=== PATIENT | female | born 1975 | race Caucasian/White ===

== ENCOUNTER 2020-03-30 14:47 | Emergency (ER) | payer OTHER ==
[~2020-03-30] VITALS: Ht 165.1 cm; Wt 104.3 kg
[~2020-03-30 14:47] MED LIST: [UNRECOGNIZED DRUG - OTHER]
[2020-03-30 14:52] VITALS: BP 118/68
[2020-03-30 15:14] VITALS: BP 118/68
== END 2020-03-30 15:14 | disposition home or self-care (01) ==
LOC: MED 14:47
DX: L02.212 Cutaneous abscess of back [any part, except buttock and flank] (principal); Z88.0 Allergy status to penicillin; Z79.899 Other long term (current) drug therapy; Z96.651 Presence of right artificial knee joint
CPT/HCPCS: 99282

== ENCOUNTER 2020-06-09 18:05 | Emergency (ER) | payer OTHER ==
[~2020-06-09] VITALS: Ht 162.6 cm; Wt 61.2 kg
[2020-06-09] MEDS ORDERED: LURA20TA PO (18:10)
[2020-06-09] MEDS ORDERED: BUS5 PO (18:10)
[2020-06-09 18:11] VITALS: BP 142/90
[2020-06-09 20:02] LABS: BASOPHILS % (AUTO) 0.3 % (0.0-2.0); EOSINOPHILS # (AUTO) 0.1 K/uL (0-0.4); EOSINOPHILS % (AUTO) 0.8 % (0.0-4.0); HEMATOCRIT 36.5 % (36-48); HEMOGLOBIN 12.2 g/dL (12.0-16.0); LYMPHOCYTES # (AUTO) 1.7 K/uL (2.5-16.5); LYMPHOCYTES % (AUTO) 20.1 % (20.5-51.1); MEAN CORPUSCULAR HEMOGLOBIN 30 pg (27-31); MEAN CORPUSCULAR HGB CONC 33 g/dL (33-37); MEAN CORPUSCULAR VOLUME 90.5 fL (80-94); MONOCYTES # (AUTO) 0.8 K/uL (0.8-1.0); MONOCYTES % (AUTO) 9.4 % (1.7-9.3); NEUTROPHILS # (AUTO) 5.9 K/uL (1.8-7.7); NEUTROPHILS % (AUTO) 69.4 % (42.2-75.2); PLATELET COUNT (AUTO) 355 K/uL (140-450); RED BLOOD CELL COUNT(AUTO) 4.03 MIL/uL (4.20-5.40); RED CELL DISTRIBUTION WIDTH 13.1 % (11.6-13.7); WHITE BLOOD COUNT (AUTO) 8.5 K/uL (4.8-10.8)
[2020-06-09 20:18] LABS: ALBUMIN 3.3 g/dL (3.4-5.0); ANION GAP 10.9 (8-16); ASPARTATE AMINOTRANSFERASE 19 U/L (15-37); CHLORIDE 105 mmol/L (98-107); CREATININE 0.9 mg/dL (0.6-1.3); GFR ARICAN-AMERICAN 88 mL/min (>90); GLUCOSE 109 mg/dL (74-106); POTASSIUM 3.9 mmol/L (3.5-5.1); SODIUM SERUM 141 mmol/L (136-145); TOTAL BILIRUBIN 0.3 mg/dL (0.0-1.0); UREA NITROGEN, BLOOD 15 mg/dL (7-18)
[2020-06-09 20:21] LABS: SALICYLATE < 2.8 mg/dL (2.8-20.0)
[2020-06-09 20:22] LABS: ACETAMINOPHEN < 0.5 ug/ml (10-30)
[2020-06-09 23:07] LABS: APPEARANCE,URINE CLEAR (CLEAR); BILIRUBIN,URINE NEGATIVE (NEGATIVE); BLOOD, URINE 3+ (NEGATIVE); COLOR,URINE YELLOW (YELLOW); LEUKOCYTE ESTERASE ,URINE NEGATIVE (NEGATIVE); NITRITE, URINE NEGATIVE (NEGATIVE); UGLUCOSE NEGATIVE (NEGATIVE)
[2020-06-09 23:16] LABS: BARBITURATE, URINE NEGATIVE ng/ml (NEG <=200); BENZODIAZEPINE, URINE NEGATIVE ng/mL (NEG <=200); CANNABINOID, URINE NEGATIVE ng/mL (NEG <=50); COCAINE, URINE NEGATIVE ng/mL (NEG <=300); OPIATE, URINE NEGATIVE ng/mL (NEG <=2000); PHENCYCLIDINE SCREEN,URINE NEGATIVE ng/mL (NEG <=25)
[2020-06-12 14:29] VITALS: BP 128/57
== END 2020-06-12 14:29 | disposition home or self-care (01) ==
LOC: MED 18:05
DX: R45.851 Suicidal ideations (principal); F29 Unspecified psychosis not due to a substance or known physiological condition; J45.909 Unspecified asthma, uncomplicated; E11.9 Type 2 diabetes mellitus without complications; Z88.0 Allergy status to penicillin; Z79.899 Other long term (current) drug therapy; Z20.828 Contact with and (suspected) exposure to other viral communicable diseases
CPT/HCPCS: 36415; 80053; 80305; 81003; 81025; 84484; 85025; 87426; 99285; G0480; G0482; U0003

== ENCOUNTER 2020-06-13 19:11 | Emergency (ER) | payer OTHER ==
[~2020-06-13] VITALS: Ht 162.6 cm; Wt 97.1 kg
[~2020-06-13 19:11] MED LIST changes: +BUS5 PO; +LURA20TA PO
[2020-06-13 19:20] VITALS: BP 106/75
[2020-06-13] MEDS ORDERED: ACETAMINOPHEN 325 MG TAB PO ONE (19:45)
[2020-06-13 20:36] VITALS: BP 106/75
== END 2020-06-13 20:20 | disposition left against medical advice (07) ==
LOC: MED 19:11
DX: R10.9 Unspecified abdominal pain (principal); J45.909 Unspecified asthma, uncomplicated; E11.9 Type 2 diabetes mellitus without complications; Z88.0 Allergy status to penicillin; Z79.899 Other long term (current) drug therapy
CPT/HCPCS: 99282

== ENCOUNTER 2020-06-20 17:28 | Emergency (ER) | payer OTHER ==
[~2020-06-20] VITALS: Ht 162.6 cm; Wt 86.2 kg
[2020-06-20 17:31] VITALS: BP 133/54
[2020-06-20 18:51] VITALS: BP 129/58
== END 2020-06-20 18:52 | disposition home or self-care (01) ==
LOC: MED 17:28
DX: R10.2 Pelvic and perineal pain (principal); J45.909 Unspecified asthma, uncomplicated; E11.9 Type 2 diabetes mellitus without complications; Z88.0 Allergy status to penicillin; Z79.899 Other long term (current) drug therapy
CPT/HCPCS: 81002; 81025; 99282

== ENCOUNTER 2020-10-09 08:27 | Emergency (ER) | payer OTHER ==
[~2020-10-09] VITALS: Ht 162.6 cm; Wt 91.6 kg
--- NOTE | 2020-10-09 08:35 | NUR ---
PT TAKEN TO ER BED 8 FOR BEDSIDE TRIAGE.
[2020-10-09 08:38] VITALS: BP 111/67
--- NOTE | 2020-10-09 08:42 | NUR ---
45 Y/O FEMALE C/O SUBJECTIVE FEVER AT HOME X3DAYS WITH BILATERAL EAR PAIN 7/10 DESCRIBES ACHING. PT STATES SHE HAD 2ND DOSE PFIZER AND TOOK SOME DAYQUIL WITH SOME RELIEF. DENIES SOB, DENIES N/V. DENIES PMH ALLERGIES: PCN
--- NOTE | 2020-10-09 08:44 | NUR ---
Dr. Jaime at pt bedside for further evaluation.
[2020-10-09] MEDS ORDERED: KETOROLAC 30 MG/ML VIAL IM ONE (08:50)
[2020-10-09] MEDS ORDERED: ACETAMINOPHEN EXTRA STRENGTH 500 MG TAB PO ONE (08:50)
--- NOTE | 2020-10-09 09:20 | NUR ---
Patient discharged with v/s stable. Written and verbal after care instructions given and explained. Patient verbalized understanding. Ambulatory with steady gait. All questions addressed prior to discharge. Advised to follow up with PMD.
[2020-10-09 09:21] VITALS: BP 111/67
== END 2020-10-09 09:20 | disposition home or self-care (01) ==
LOC: MED 08:27
DX: T88.1XXA Other complications following immunization, not elsewhere classified, initial encounter (principal); M79.10 Myalgia, unspecified site; F17.200 Nicotine dependence, unspecified, uncomplicated; J45.909 Unspecified asthma, uncomplicated; E11.9 Type 2 diabetes mellitus without complications; Z71.6 Tobacco abuse counseling; Z79.899 Other long term (current) drug therapy; Z88.0 Allergy status to penicillin
CPT/HCPCS: 96372; 99283; J1885

== ENCOUNTER 2021-02-15 13:09 | Emergency (ER) | payer OTHER ==
[~2021-02-15] VITALS: Ht 162.6 cm; Wt 86.2 kg
[2021-02-15 13:15] VITALS: BP 110/66
--- NOTE | 2021-02-15 13:19 | NUR ---
45 Y/O FEMALE C/O MYALGIA, SORETHROAT, N/V, CHANGES IN APPETITE, HEADACHE 8 X1DAY. PT DENIES FEVER/CHILLS. PMH: ASTHMA ALLERGIES: PCN
--- NOTE | 2021-02-15 13:19 | NUR ---
PT TO WAIT IN TENT.
[2021-02-15] MEDS ORDERED: IBUP-2213 PO (14:01)
[2021-02-15] MEDS ORDERED: PHEN177S23 PO (14:01)
[2021-02-15] MEDS ORDERED: ONDA-24 SL (14:02)
[2021-02-15 14:53] VITALS: BP 110/66
--- NOTE | 2021-02-15 14:53 | NUR ---
Patient discharged with v/s stable. Written and verbal after care instructions given and explained. Patient alert, oriented and verbalized understanding of instructions. Ambulatory with steady gait. All questions addressed prior to discharge. ID band removed. Patient advised to follow up with PMD. Rx of IBURPROFEN, ONDANSETRON, PHENOL given. Patient educated on indication of medication including possible reaction and side effects. Opportunity to ask questions provided and answered.
== END 2021-02-15 14:53 | disposition home or self-care (01) ==
LOC: MED 13:09
DX: J06.9 Acute upper respiratory infection, unspecified (principal); J45.909 Unspecified asthma, uncomplicated; E11.9 Type 2 diabetes mellitus without complications; Z88.0 Allergy status to penicillin
CPT/HCPCS: 99283

== ENCOUNTER 2021-06-03 10:48 | Emergency (ER) | payer OTHER ==
[~2021-06-03] VITALS: Ht 162.6 cm; Wt 96.2 kg
[~2021-06-03 10:48] MED LIST changes: +IBUP-2213 PO; +ONDA-188 SL; +PHEN177S23 PO
[2021-06-03 11:13] VITALS: BP 137/77
[2021-06-03] MEDS ORDERED: NAPR-54 PO (11:44)
[2021-06-03] MEDS ORDERED: CODE5SYR5 PO (11:44)
[2021-06-03] MEDS ORDERED: PRED20TA5 PO (11:44)
[2021-06-03 12:01] VITALS: BP 123/71
--- NOTE | 2021-06-03 12:01 | NUR ---
Patient discharged with v/s stable. Written and verbal after care instructions given FOR VIRAL ILLNESS and explained. Patient alert, oriented and verbalized understanding of instructions. Ambulatory with steady gait. All questions addressed prior to discharge. ID band removed. Patient advised to follow up with PMD. Rx of PROMETHAZINE, NAPROXEN, AND PREDNISONE given. Patient educated on indication of medication including possible reaction and side effects. Opportunity to ask questions provided and answered.
== END 2021-06-03 12:01 | disposition home or self-care (01) ==
LOC: MED 10:48
DX: B34.9 Viral infection, unspecified (principal); Z20.822 Contact with and (suspected) exposure to COVID-19; J45.909 Unspecified asthma, uncomplicated; E11.9 Type 2 diabetes mellitus without complications; Z79.899 Other long term (current) drug therapy; Z88.0 Allergy status to penicillin
CPT/HCPCS: 99283; U0003

== ENCOUNTER 2021-07-24 19:03 | Emergency (ER) | payer OTHER ==
[~2021-07-24] VITALS: Ht 152.4 cm; Wt 97.7 kg
[~2021-07-24 19:03] MED LIST changes: +CODE5SYR5 PO; +NAPR-54 PO; +PRED20TA5 PO
[2021-07-24 19:10] VITALS: BP 130/78
--- NOTE | 2021-07-24 19:21 | NUR ---
PA at bedside for examination
[2021-07-24] MEDS ORDERED: IBUPROFEN 600 MG TAB PO ONE (19:35)
[2021-07-24] MEDS ORDERED: IBUP-2213 PO (20:04)
[2021-07-24] MEDS ORDERED: LORA10TA60 PO (20:04)
[2021-07-24 20:11] VITALS: BP 130/78
--- NOTE | 2021-07-24 20:11 | NUR ---
Patient discharged with v/s stable. Written and verbal after care instructions given and explained. Patient alert, oriented and verbalized understanding of instructions. Ambulatory with steady gait. All questions addressed prior to discharge. ID band removed. Patient advised to follow up with PMD. Rx of IBUPROFEN, LORATADINE given. Patient educated on indication of medication including possible reaction and side effects. Opportunity to ask questions provided and answered.
== END 2021-07-24 20:11 | disposition home or self-care (01) ==
LOC: MED 19:03
DX: H92.02 Otalgia, left ear (principal); R03.0 Elevated blood-pressure reading, without diagnosis of hypertension; J45.909 Unspecified asthma, uncomplicated; E11.9 Type 2 diabetes mellitus without complications; Z79.899 Other long term (current) drug therapy; Z88.0 Allergy status to penicillin
CPT/HCPCS: 99282

== ENCOUNTER 2021-11-24 08:20 | Emergency (ER) | payer OTHER ==
[~2021-11-24] VITALS: Ht 165.1 cm; Wt 99.8 kg
[~2021-11-24 08:20] MED LIST changes: +LORA10TA60 PO
[2021-11-24 08:24] VITALS: BP 121/70
[2021-11-24 09:11] LABS: BASOPHILS % (AUTO) 0.4 % (0.0-2.0); EOSINOPHILS % (AUTO) 0.6 % (0.0-4.0); HEMATOCRIT 36.3 % (36-48); HEMOGLOBIN 12.2 g/dL (12.0-16.0); LYMPHOCYTES # (AUTO) 1.6 K/uL (2.5-16.5); LYMPHOCYTES % (AUTO) 22.1 % (20.5-51.1); MEAN CORPUSCULAR HEMOGLOBIN 30 pg (27-31); MEAN CORPUSCULAR HGB CONC 34 g/dL (33-37); MEAN CORPUSCULAR VOLUME 89.4 fL (80-94); MONOCYTES # (AUTO) 0.7 K/uL (0.8-1.0); NEUTROPHILS # (AUTO) 4.7 K/uL (1.8-7.7); NEUTROPHILS % (AUTO) 66.9 % (42.2-75.2); PLATELET COUNT (AUTO) 331 K/uL (140-450); RED BLOOD CELL COUNT(AUTO) 4.06 MIL/uL (4.20-5.40); RED CELL DISTRIBUTION WIDTH 13.1 % (11.6-13.7)
[2021-11-24 09:24] LABS: ACETAMINOPHEN < 0.5 ug/ml (10-30); ALBUMIN 3.3 g/dL (3.4-5.0); ANION GAP 9.6 (8-16); ASPARTATE AMINOTRANSFERASE 25 U/L (15-37); CARBON DIOXIDE 27.4 mmol/L (21-32); CHLORIDE 108 mmol/L (98-107); CREATININE 0.6 mg/dL (0.6-1.3); GFR ARICAN-AMERICAN 140 mL/min (>90); GLUCOSE 98 mg/dL (74-106); SALICYLATE < 2.8 mg/dL (2.8-20.0); SODIUM SERUM 141 mmol/L (136-145); TOTAL BILIRUBIN 0.4 mg/dL (0.0-1.0); UREA NITROGEN, BLOOD 11 mg/dL (7-18)
[2021-11-24 10:29] LABS: APPEARANCE,URINE CLEAR (CLEAR); BILIRUBIN,URINE NEGATIVE (NEGATIVE); BLOOD, URINE TRACE-I (NEGATIVE); COLOR,URINE YELLOW (YELLOW); LEUKOCYTE ESTERASE ,URINE TRACE (NEGATIVE); NITRITE, URINE NEGATIVE (NEGATIVE); PH,URINE 6.5 (5.0-9.0); UGLUCOSE NEGATIVE (NEGATIVE)
[2021-11-24 10:40] LABS: BARBITURATE, URINE NEGATIVE ng/ml (NEG <=200); BENZODIAZEPINE, URINE NEGATIVE ng/mL (NEG <=200); CANNABINOID, URINE NEGATIVE ng/mL (NEG <=50); COCAINE, URINE NEGATIVE ng/mL (NEG <=300); OPIATE, URINE NEGATIVE ng/mL (NEG <=2000); PHENCYCLIDINE SCREEN,URINE NEGATIVE ng/mL (NEG <=25)
[2021-11-24 11:03] LABS: RBC,URINE 0-5 /HPF (0-5); WBC,URINE 0-5 /HPF (0-5)
[2021-11-24] MEDS ORDERED: BUS5 PO (19:31)
[2021-11-24] MEDS ORDERED: LURA20TA PO (19:31)
[2021-11-24] MEDS ORDERED: RISP0.2515 PO (19:31)
[2021-11-24] MEDS ORDERED: DOCU-299 PO (19:31)
[2021-11-24] MEDS ORDERED: DIVA500T1 PO (21:07)
[2021-11-25] MEDS ORDERED: KCL 20 MEQ/WATER INJ PREMIX 200 ML IV PRN (08:25)
[2021-11-25] MEDS ORDERED: ACETAMINOPHEN 325 MG TAB PO PRN (08:25)
[2021-11-25] MEDS ORDERED: HYDROcodone/APAP 5/325 MG 1 TAB TAB PO PRN (08:25)
[2021-11-25] MEDS ORDERED: ONDANSETRON 4 MG/2 ML VIAL IVP PRN (08:25)
[2021-11-25] MEDS ORDERED: MAGNESIUM OXIDE 400 MG TAB PO PRN (08:25)
[2021-11-25] MEDS ORDERED: MAG SULF 2000 MG/WATER PREMIX 50 ML IV PRN (08:25)
[2021-11-25] MEDS ORDERED: POTASSIUM CHLORIDE 10 MEQ TABER PO PRN (08:25)
[2021-11-25] MEDS ORDERED: DOCUSATE SODIUM 100 MG GELCAP PO SCH (09:00)
[2021-11-25 13:35] VITALS: BP 110/51
== END 2021-11-25 13:30 ==
LOC: MED 08:20 → MTU 11-25 08:24 → UNDOADMIN 11-25 08:24 → MED 11-25 13:30
DX: F79 Unspecified intellectual disabilities (principal); Z20.822 Contact with and (suspected) exposure to COVID-19; J45.909 Unspecified asthma, uncomplicated; E11.9 Type 2 diabetes mellitus without complications; Z79.4 Long term (current) use of insulin; Z79.899 Other long term (current) drug therapy; Z88.0 Allergy status to penicillin
CPT/HCPCS: 36415; 80053; 80305; 81001; 81025; 85025; 87426; 87635; 99285; C9803; G0480; G0482

== ENCOUNTER 2022-01-13 16:31 | Emergency (ER) | payer OTHER ==
[~2022-01-13] VITALS: Ht 162.6 cm; Wt 98.0 kg
[~2022-01-13 16:31] MED LIST changes: -CODE5SYR5 PO; +DIVA500T1 PO; +DOCU-299 PO; -IBUP-2213 PO; -LORA10TA60 PO; -NAPR-54 PO; -ONDA-188 SL; -PHEN177S23 PO; -PRED20TA5 PO; +RISP0.2515 PO
[2022-01-13 17:01] VITALS: BP 113/63
--- NOTE | 2022-01-13 19:25 | NUR ---
PATIENT ELOPED FROM FACILITY. DISCHARGE INSTRUCTIONS NOT GIVEN TO PATIENT. DR. MOTTA NOTIFIED.
== END 2022-01-13 19:25 | disposition left against medical advice (07) ==
LOC: MED 16:31
DX: R07.9 Chest pain, unspecified (principal); F17.290 Nicotine dependence, other tobacco product, uncomplicated; J45.909 Unspecified asthma, uncomplicated; E11.9 Type 2 diabetes mellitus without complications; Z71.6 Tobacco abuse counseling; Z88.0 Allergy status to penicillin; Z79.899 Other long term (current) drug therapy
CPT/HCPCS: 93005; 99283